=== PATIENT | female | born 1950 | race Caucasian/White ===

== ENCOUNTER 2020-08-28 11:09 | Outpatient (CLI) | payer MEDICARE, BC, OTHER ==
--- NOTE | 2020-08-28 11:43 | RAD ---
EXAM: XR Sacroiliac Joints >=3 View DATE: 08/28/2020 11:18 AM INDICATION: History of fall with lower tailbone pain COMPARISON: CT the abdomen and pelvis with contrast dated August 13, 2020 FINDING: There is mild degenerative change of both SI joints. No periarticular erosions are grossly evident. No acute fracture is noted. There is mild degenerative change of the symphysis pubis. There are scattered vascular calcifications. 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
== END 2020-08-28 11:10 | disposition home or self-care (01) ==
LOC: SCSRAD 11:09
PROVIDERS: ATTEND Family Medicine
DX: M47.818 Spondylosis without myelopathy or radiculopathy, sacral and sacrococcygeal region (principal)
CPT/HCPCS: 72202

== ENCOUNTER 2020-10-10 09:00 | Inpatient (IN) | payer MEDICARE, BC, OTHER ==
[2020-10-15] MEDS ORDERED: Midazolam HCl 2 mg/2 ml Vial ONE ×3 (06:30→07:00)
[2020-10-15] MEDS ORDERED: Fentanyl 250 MCG/5 ML VIAL ONE (06:30)
[2020-10-15] MEDS ORDERED: cefOXitin Sodium/Dextrose 2 GM/50 ML BAG ONE (06:51)
[2020-10-15] MEDS ORDERED: SUGAMMADEX SODIUM 500 MG/5 ML VIAL ONE (06:58)
[2020-10-15] MEDS ORDERED: Fentanyl 100 MCG/2 ML VIAL ONE ×3 (07:00→11:53)
[2020-10-15] MEDS ORDERED: Lidocaine 1% (PF) 30 ML VIAL ONE (07:00)
[2020-10-15] MEDS ORDERED: Bupivacaine HCl 0.5%/Epinephrine 1:200,000/PF 30 ml Vial ONE (07:15)
[2020-10-15] MEDS ORDERED: ePHEDrine 50 MG/ML VIAL ONE (07:50)
[2020-10-15] MEDS ORDERED: Rocuronium Bromide 10 MG/ML (10ML VIAL) ONE (07:50)
[2020-10-15] MEDS ORDERED: Lidocaine 1% PF 5 ML VIAL ONE (07:50)
[2020-10-15] MEDS ORDERED: Dexamethasone 20 MG/5 ML VIAL ONE (07:50)
[2020-10-15] MEDS ORDERED: Ondansetron PF 4 MG/2 ML Vial ONE (07:50)
[2020-10-15] MEDS ORDERED: Ketorolac Tromethamine 30 MG/ML VIAL ONE (07:50)
[2020-10-15] MEDS ORDERED: PROPOFOL 200 MG/20 ML VIAL ONE (07:50)
[2020-10-15] MEDS ORDERED: Promethazine HCl 25 MG/ML VIAL IM PRN ×2 (10:17→12:54)
[2020-10-15] MEDS ORDERED: Promethazine HCl 25 MG/ML VIAL SLOW IVP PRN (10:17)
[2020-10-15] MEDS ORDERED: Ondansetron HCl/PF 4 MG/2 ML Vial IVP PRN (10:17)
[2020-10-15] MEDS ORDERED: hydrALAZINE 20 MG/ML VIAL SLOW IVP PRN (12:54)
[2020-10-15] MEDS ORDERED: Fentanyl 100 MCG/2 ML VIAL SLOW IVP PRN ×2 (12:54)
[2020-10-15] MEDS ORDERED: Ondansetron PF 4 MG/2 ML Vial IVP PRN (12:54)
[2020-10-15 13:40] VITALS: BMI 19.6
[2020-10-15] MEDS: D5 1/2 NS w/20 mEq KCL 1,000 ML IV SCH (13:48)
[2020-10-15] MEDS: cefOXitin Sodium/Dextrose,Iso 1 GM in Premix Bag 1 BAG IVPB SCH ×2 (15:50→23:11)
[2020-10-15] MEDS: Acetaminophen 325 MG TAB PO PRN (16:00)
[2020-10-15] MEDS: Brimonidine Tartrate 0.2% Ophth Soln 5 ml Bottle EA EYE SCH (20:21)
[2020-10-15] MEDS: Famotidine/PF 20 mg/2ml Vial SLOW IVP SCH (20:21)
[2020-10-15] MEDS: Famotidine 20 MG TAB PO SCH (20:21)
[2020-10-15] MEDS: Latanoprost 0.005% Ophth Soln 2.5 ml Bottle EA EYE SCH (20:21)
[2020-10-15] MEDS: Timolol 0.5% Ophth Soln 5 ml Bottle EA EYE SCH (20:22)
[2020-10-15] MEDS ORDERED: Mag-Al 1200 mg/1200 mg/30 ML UDCUP PO PRN (21:47)
[2020-10-16] MEDS: D5 1/2 NS w/20 mEq KCL 1,000 ML IV SCH ×2 (03:03→13:11)
[2020-10-16] MEDS: HYDROcodone/Acetaminophen 7.5/325 mg Tablet PO PRN ×2 (05:19→13:13)
[2020-10-16 05:29] LABS: #Lymphocytes 1.5 thou/uL (1.20-3.40); #Monocytes 1.3 thou/uL (0.11-0.59); #Neutrophils 9.9 thou/uL (1.40-6.50); %Basophils 0.2 % (0.0-1.0); %Lymphocytes 11.9 % (21.0-51.0); %Monocytes 9.9 % (0.0-10.0); Hemoglobin 10.2 g/dL (12.0-16.0); Mean Corpuscular HGB CONC 33.1 g/dL (32.0-36.0); Mean Corpuscular Hemoglobin 29.2 pg (27.0-31.0); Mean Corpuscular Volume 88.1 fL (78.0-98.0); Mean Platelet Volume 6.2 fL (7.4-10.4); Platelet Count 275 thou/uL (130-400); RBC Distribution Width 12.9 % (11.5-14.5); Red Blood Cell (RBC) Count 3.48 mill/uL (4.20-5.40); White Blood Cell (WBC) Count 12.7 thou/uL (4.8-10.8)
[2020-10-16 05:50] LABS: Anion Gap 12 mmol/L (10-20); BUN (Urea Nitrogen) 8 mg/dL (9.8-20.1); Calc. Creatinine Clearance 63 mL/min (70-130); Calcium 8.2 mg/dL (7.8-10.44); Carbon Dioxide 21 mmol/L (23-31); Chloride 101 mmol/L (98-107); Glucose 149 mg/dL (80-115); Sodium 130 mmol/L (136-145)
[2020-10-16] MEDS: Amlodipine 5 MG TAB PO SCH (08:35)
[2020-10-16] MEDS: cefOXitin Sodium/Dextrose,Iso 1 GM in Premix Bag 1 BAG IVPB SCH ×2 (08:35→15:20)
[2020-10-16] MEDS: Enoxaparin Sodium 40 MG/0.4 ML SYRINGE SC SCH (08:36)
[2020-10-16] MEDS: Famotidine/PF 20 mg/2ml Vial SLOW IVP SCH ×2 (08:36→21:32)
[2020-10-16] MEDS: Famotidine 20 MG TAB PO SCH ×2 (08:36→21:32)
[2020-10-16] MEDS: Timolol 0.5% Ophth Soln 5 ml Bottle EA EYE SCH ×2 (08:37→21:33)
[2020-10-16] MEDS: Brimonidine Tartrate 0.2% Ophth Soln 5 ml Bottle EA EYE SCH ×3 (08:37→21:32)
[2020-10-16] MEDS ORDERED: Ketorolac Tromethamine 30 MG/ML VIAL IVP PRN (18:16)
[2020-10-16] MEDS: Acetaminophen 325 MG TAB PO PRN (21:31)
[2020-10-16] MEDS: Latanoprost 0.005% Ophth Soln 2.5 ml Bottle EA EYE SCH (21:32)
[2020-10-17] MEDS: Acetaminophen 325 MG TAB PO PRN ×2 (02:03→08:15)
[2020-10-17] MEDS: D5 1/2 NS w/20 mEq KCL 1,000 ML IV SCH (02:36)
[2020-10-17] MEDS: Famotidine 20 MG TAB PO SCH (08:15)
[2020-10-17] MEDS: Amlodipine 5 MG TAB PO SCH (08:16)
[2020-10-17] MEDS: Famotidine/PF 20 mg/2ml Vial SLOW IVP SCH ×2 (08:16→08:19)
[2020-10-17] MEDS: Timolol 0.5% Ophth Soln 5 ml Bottle EA EYE SCH (08:18)
[2020-10-17] MEDS: Brimonidine Tartrate 0.2% Ophth Soln 5 ml Bottle EA EYE SCH (08:18)
[2020-10-17] MEDS: Enoxaparin Sodium 40 MG/0.4 ML SYRINGE SC SCH (10:03)
[2020-10-17 12:10] VITALS: BP 151/78; TEMP 98.4
== END 2020-10-17 12:47 | disposition home or self-care (01) | DRG 330 ==
LOC: SURG A 10-15 06:05 → EDSTATUS 10-15 09:00 → SURG A 10-15 13:30
PROVIDERS: ADMIT Surgery; ATTEND Surgery
PROC: 0DBG4ZZ Excision of Left Large Intestine, Percutaneous Endoscopic Approach (ICD-10-PCS; principal; 2020-10-17)
PROC: 0DBN4ZZ Excision of Sigmoid Colon, Percutaneous Endoscopic Approach (ICD-10-PCS; 2020-10-17)
PROC: 0DJD8ZZ Inspection of Lower Intestinal Tract, Via Natural or Artificial Opening Endoscopic (ICD-10-PCS; 2020-10-17)
DX: C18.7 Malignant neoplasm of sigmoid colon (principal); E87.1 Hypo-osmolality and hyponatremia; D62 Acute posthemorrhagic anemia; D72.829 Elevated white blood cell count, unspecified; R73.9 Hyperglycemia, unspecified
CPT/HCPCS: 36415; 36416; 80048; 85025; 88309; 88313; J0694; J1100; J1650; J1885; J2001; J2250; J2405; J2704; J3010; J3480; J3490; S0028

== ENCOUNTER 2020-10-10 09:11 | Outpatient (CLI) | payer MEDICARE, BC, OTHER | END 2020-10-10 09:12 | disposition home or self-care (01) | LOC: LABBT 09:11 | PROVIDERS: ATTEND Surgery | DX: Z01.818 Encounter for other preprocedural examination (principal); Z20.822 Contact with and (suspected) exposure to COVID-19; C18.9 Malignant neoplasm of colon, unspecified | CPT/HCPCS: 80048; 83036; 85025; 93005; U0003; U0005; 87635; 93010 ==

== ENCOUNTER 2020-11-14 12:52 | Outpatient (CLI) | payer MEDICARE, BC, OTHER ==
[2020-11-14 13:20] LABS: #Basophils 0.1 10x3/uL (0.0-0.2); #Eosinphils 0.3 10x3/uL (0.0-0.5); #Monocytes 0.9 10x3/uL (0.0-1.1); #Neutrophils 4.9 10x3/uL (1.5-8.4); %Basophils 0.7 % (0.0-2.0); %Eosinophils 4.3 % (0.0-6.0); %Lymphocytes 18.9 % (18.0-47.0); %Monocytes 12.1 % (0.0-10.0); %Neutrophils 63.6 % (40.0-75.0); Hemoglobin 9.9 g/dL (12.0-15.5); Mean Corpuscular HGB CONC 31.1 g/dL (32.0-36.0); Mean Corpuscular Volume 86.9 fl (81.6-98.3); Mean Platelet Volume 8.5 fl (7.4-10.4); Platelet Count 472 10x3/uL (150-450); RBC Distribution Width 14.1 % (11.5-14.5); Red Blood Cell (RBC) Count 3.66 10x6/uL (3.90-5.03); White Blood Cell (WBC) Count 7.7 10x3/uL (3.5-10.5)
[2020-11-15 11:37] LABS: SARS-CoV-2 PCR by NAA Not Detected (NotDetected)
== END 2020-11-14 12:53 | disposition home or self-care (01) ==
LOC: LABBT 12:52
PROVIDERS: ATTEND Surgery
DX: Z01.812 Encounter for preprocedural laboratory examination (principal); Z20.822 Contact with and (suspected) exposure to COVID-19
CPT/HCPCS: 85025; U0003; U0005; 87635

== ENCOUNTER 2020-11-19 07:07 | Day surgery (SDC) | payer MEDICARE, BC, OTHER ==
[2020-11-18 13:25] VITALS: BMI 18.7
[2020-11-19] MEDS ORDERED: PROPOFOL 60 ML ONE (08:53)
[2020-11-19] MEDS ORDERED: Fentanyl 100 MCG/2 ML VIAL ONE (08:53)
[2020-11-19] MEDS ORDERED: Lidocaine 1% w/Epinephrine 1:100K 20 ML VIAL ONE (08:54)
[2020-11-19] MEDS ORDERED: Bupivacaine 0.25% HCL 30 ML VIAL ONE (08:54)
[2020-11-19] MEDS ORDERED: Lidocaine 1% PF 5 ML VIAL ONE (09:11)
[2020-11-19] MEDS ORDERED: Albuterol Sulfate HFA (OR ONLY) ONE (09:11)
== END 2020-11-19 11:03 | disposition home or self-care (01) ==
LOC: SDC 07:07
PROVIDERS: ATTEND Surgery
PROC: 0JH60WZ Insertion of Totally Implantable Vascular Access Device into Chest Subcutaneous Tissue and Fascia, Open Approach (ICD-10-PCS; principal; 2020-11-19)
PROC: 02HV33Z Insertion of Infusion Device into Superior Vena Cava, Percutaneous Approach (ICD-10-PCS; 2020-11-19)
DX: C18.7 Malignant neoplasm of sigmoid colon (principal); G43.109 Migraine with aura, not intractable, without status migrainosus; Z79.899 Other long term (current) drug therapy; Z88.2 Allergy status to sulfonamides; Z88.5 Allergy status to narcotic agent; Z90.49 Acquired absence of other specified parts of digestive tract
CPT/HCPCS: 71045; C1788; J0690; J1642; J2704; J3010; S0020

== ENCOUNTER 2021-01-06 09:43 | Emergency (ER) | payer MEDICARE, BC, OTHER ==
[2021-01-06 11:00] LABS: Hemoglobin 11.2 g/dL (12.0-16.0); Mean Corpuscular HGB CONC 31.9 g/dL (32.0-36.0); Mean Corpuscular Hemoglobin 28.3 pg (27.0-31.0); Mean Corpuscular Volume 88.9 fL (78.0-98.0); Mean Platelet Volume 7.4 fL (7.4-10.4); Platelet Count 154 thou/uL (130-400); RBC Distribution Width 17.4 % (11.5-14.5); Red Blood Cell (RBC) Count 3.96 mill/uL (4.20-5.40); White Blood Cell (WBC) Count 4.4 thou/uL (4.8-10.8)
[2021-01-06 11:24] LABS: ALT (SGPT) 15 U/L (8-55); AST (SGOT) 23 U/L (5-34); Albumin 3.4 g/dL (3.4-4.8); Alkaline Phosphatase 73 U/L (40-110); Anion Gap 15 mmol/L (10-20); BUN (Urea Nitrogen) 13 mg/dL (9.8-20.1); Bilirubin, Total 0.4 mg/dL (0.2-1.2); Calc. Creatinine Clearance 0 mL/min (70-130); Calcium 9.1 mg/dL (7.8-10.44); Carbon Dioxide 23 mmol/L (23-31); Chloride 102 mmol/L (98-107); Globulin 3.5 g/dL (2.4-3.5); Glucose 117 mg/dL (80-115); Lipase 48 U/L (8-78); Magnesium 1.8 mg/dL (1.6-2.6); Potassium 3.8 mmol/L (3.5-5.1); Protein, Total 6.9 g/dL (5.8-8.1); Sodium 136 mmol/L (136-145)
[2021-01-06 11:34] LABS: Band 9 % (5-11); Eosinophils 1 % (0-10); Lymphocytes 17 % (21-51); MDiff Complete? YES; Monocytes 14 % (0-10); Neutrophil 58 % (42-75); Platelet Morphology Comment Appears Adequate; RBC Morphology Normal; Reactive Lymphocytes 1 % (0-10)
[2021-01-06 13:02] LABS: Bilirubin Negative (Negative); Blood, Urine Negative (Negative); Glucose, Urine (Dipstick) Negative (Negative); Ketone, Urine Negative (Negative); Leukocyte Negative (Negative); Nitrite Negative (Negative); Protein, Urine (Dipstick) Negative (Neg-Trace); Urobilinogen 0.2 mg/dL (Less than 2); pH, Urine 7.5 (5.0-9.0)
[2021-01-06 13:07] LABS: Clarity Clear (Clear)
[2021-01-06 13:13] LABS: Bacteria/HPF None Seen HPF (None Seen); RBC/HPF None Seen HPF (0-3); Squamous Epithelial 0-3 HPF (0-3); WBC/HPF 0-3 HPF (0-3)
[2021-01-06] MEDS ORDERED: Iopamidol-370 76% 500 ML 1 ML ONE (13:48)
== END 2021-01-06 15:43 | disposition home or self-care (01) ==
LOC: ERS 09:43
DX: R55 Syncope and collapse (principal); E86.0 Dehydration; R53.1 Weakness; E78.5 Hyperlipidemia, unspecified; I10 Essential (primary) hypertension; Z85.038 Personal history of other malignant neoplasm of large intestine; Z79.899 Other long term (current) drug therapy
CPT/HCPCS: 36415; 71045; 74177; 80053; 81003; 82248; 82378; 83615; 83690; 83735; 83880; 84100; 84484; 84550; 85025; 93005; Q9967

== ENCOUNTER 2021-03-14 11:32 | Outpatient (CLI) | payer MEDICARE, BC, OTHER ==
[~2021-03-14 11:32] MED LIST: Iopamidol 370 76% 100 ML VIAL ONE
== END 2021-03-14 11:33 | disposition home or self-care (01) ==
LOC: CT 11:32
PROVIDERS: ATTEND Internal Medicine Hematology & Oncology
DX: C18.7 Malignant neoplasm of sigmoid colon (principal); R60.0 Localized edema; J90 Pleural effusion, not elsewhere classified; R18.8 Other ascites; K76.9 Liver disease, unspecified; N13.30 Unspecified hydronephrosis; Z98.890 Other specified postprocedural states
CPT/HCPCS: 74177; Q9967

== ENCOUNTER 2021-05-28 09:34 | Outpatient (CLI) | payer MEDICARE, BC, OTHER | END 2021-05-28 09:35 | disposition home or self-care (01) | LOC: CT 09:34 | PROVIDERS: ATTEND Internal Medicine Hematology & Oncology | DX: C18.7 Malignant neoplasm of sigmoid colon (principal) | CPT/HCPCS: 71260; 74177 ==

== ENCOUNTER 2022-02-13 08:31 | Outpatient (CLI) | payer MEDICARE, BC, OTHER ==
[2022-02-13] MEDS ORDERED: Iopamidol 370 76% 100 ML VIAL ONE (12:54)
== END 2022-02-13 08:32 | disposition home or self-care (01) ==
LOC: CT 08:31
PROVIDERS: ATTEND Internal Medicine Hematology & Oncology
DX: C18.7 Malignant neoplasm of sigmoid colon (principal); D50.0 Iron deficiency anemia secondary to blood loss (chronic); D70.1 Agranulocytosis secondary to cancer chemotherapy; I10 Essential (primary) hypertension
CPT/HCPCS: 71260; 74177; Q9967

== ENCOUNTER 2022-07-22 08:51 | Outpatient (CLI) | payer MEDICARE, BC, OTHER ==
[2022-07-22] MEDS ORDERED: Iopamidol 370 76% 100 ML VIAL ONE (12:50)
== END 2022-07-22 08:52 | disposition home or self-care (01) ==
LOC: CT 08:51
PROVIDERS: ATTEND Internal Medicine Hematology & Oncology
DX: C18.9 Malignant neoplasm of colon, unspecified (principal); D70.1 Agranulocytosis secondary to cancer chemotherapy; T45.1X5A Adverse effect of antineoplastic and immunosuppressive drugs, initial encounter
CPT/HCPCS: 71260; 74177; 82565; Q9967

== ENCOUNTER 2022-10-10 11:37 | Emergency (ER) | payer MEDICARE, BC, OTHER ==
[2022-10-10 12:09] LABS: #Lymphocytes 1.5 thou/uL (1.20-3.40); #Monocytes 0.5 thou/uL (0.11-0.59); #Neutrophils 4.9 thou/uL (1.40-6.50); %Basophils 0.5 % (0.0-1.0); %Eosinophils 0.5 % (0.0-10.0); %Lymphocytes 21.8 % (21.0-51.0); %Monocytes 7.3 % (0.0-10.0); %Neutrophils 69.9 % (42.0-75.0); Hemoglobin 14.8 g/dL (12.0-16.0); Mean Corpuscular HGB CONC 33.7 g/dL (32.0-36.0); Mean Corpuscular Hemoglobin 31.6 pg (27.0-31.0); Mean Platelet Volume 6.8 fL (7.4-10.4); Platelet Count 246 10x3/uL (130-400); RBC Distribution Width 11.6 % (11.5-14.5); Red Blood Cell (RBC) Count 4.66 mill/uL (4.20-5.40)
[2022-10-10 12:12] LABS: Bacteria/HPF None Seen HPF (None Seen); Bilirubin Negative (Negative); Blood, Urine Negative (Negative); Clarity Clear (Clear); Glucose, Urine (Dipstick) Normal (Negative); Ketone, Urine Negative (Negative); Leukocyte 25 Leu/uL (Negative); Nitrite Negative (Negative); Protein, Urine (Dipstick) Negative (Neg-Trace); RBC/HPF None Seen HPF (0-3); Specific Gravity, Urine 1.007 (1.002-1.036); Squamous Epithelial 0-3 HPF (0-3); Urobilinogen Normal mg/dL (Less than 2); WBC/HPF 0-3 HPF (0-3); pH, Urine 7.5 (5.0-9.0)
[2022-10-10 12:30] LABS: ALT (SGPT) 14 U/L (8-55); AST (SGOT) 19 U/L (5-34); Albumin 4.7 g/dL (3.4-4.8); Alkaline Phosphatase 115 U/L (40-110); Anion Gap 15 mmol/L (10-20); BUN (Urea Nitrogen) 13 mg/dL (9.8-20.1); Bilirubin, Total 0.5 mg/dL (0.2-1.2); Calc. Creatinine Clearance 0 mL/min (70-130); Calcium 9.6 mg/dL (7.8-10.44); Carbon Dioxide 23 mmol/L (23-31); Chloride 104 mmol/L (98-107); Estimated GFR 83; Globulin 3.4 g/dL (2.4-3.5); Glucose 94 mg/dL (83-110); Lipase 29 U/L (8-78); Potassium 3.5 mmol/L (3.5-5.1); Protein, Total 8.1 g/dL (5.8-8.1); Sodium 138 mmol/L (136-145)
[2022-10-10] MEDS ORDERED: Ketorolac Tromethamine 30 MG/ML VIAL ONE (14:00)
[2022-10-10] MEDS ORDERED: Dicyclomine 20 MG/2 ML VIAL ONE (14:00)
== END 2022-10-10 15:13 | disposition home or self-care (01) ==
LOC: ERS 11:37
DX: N13.30 Unspecified hydronephrosis (principal); I10 Essential (primary) hypertension; E78.00 Pure hypercholesterolemia, unspecified; H40.9 Unspecified glaucoma; Z85.038 Personal history of other malignant neoplasm of large intestine; Z79.899 Other long term (current) drug therapy
CPT/HCPCS: 36415; 74177; 80053; 81003; 81015; 83690; 85025; 93005; 96372; 96374; J1885

== ENCOUNTER 2022-10-22 12:58 | Outpatient (CLI) | payer MEDICARE, BC, OTHER | END 2022-10-22 12:59 | disposition home or self-care (01) | LOC: NM 12:58 | PROVIDERS: ATTEND Urology | DX: N13.30 Unspecified hydronephrosis (principal) | CPT/HCPCS: 78708; A4641; A9562 ==

== ENCOUNTER 2023-07-14 07:29 | Outpatient (CLI) | payer MEDICARE, BC, OTHER ==
[2023-07-14] MEDS ORDERED: Iopamidol 370 76% 100 ML VIAL ONE (10:35)
== END 2023-07-14 07:30 | disposition home or self-care (01) ==
LOC: CT 07:29
PROVIDERS: ATTEND Internal Medicine Hematology & Oncology
DX: C18.7 Malignant neoplasm of sigmoid colon (principal)
CPT/HCPCS: 71260; 74177

== ENCOUNTER 2023-10-06 12:47 | Outpatient (CLI) | payer MEDICARE, OTHER ==
[2023-10-06] MEDS ORDERED: Furosemide 40 MG (4 mL) VIAL ONE (13:49)
== END 2023-10-06 12:48 | disposition home or self-care (01) ==
LOC: NM 12:47
PROVIDERS: ATTEND Urology
DX: N13.30 Unspecified hydronephrosis (principal)
CPT/HCPCS: 78708; A4641; A9562; J1940

== ENCOUNTER 2023-12-07 08:31 | Outpatient (CLI) | payer MEDICARE, OTHER ==
[2023-12-07] MEDS ORDERED: Iopamidol 370 76% 100 ML VIAL ONE (10:58)
== END 2023-12-07 08:32 | disposition home or self-care (01) ==
LOC: CT 08:31
PROVIDERS: ATTEND Internal Medicine Hematology & Oncology
DX: C18.9 Malignant neoplasm of colon, unspecified (principal)
CPT/HCPCS: 71260; 74177; 82565